=== PATIENT | male | born 2000 | race American Indian/Alaskan Native ===

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

== ENCOUNTER 2020-09-04 20:24 | Emergency (ER) | payer SELFPAY | END 2020-09-04 23:10 | disposition left against medical advice (07) | LOC: ED 20:24 | DX: R11.10 Vomiting, unspecified (principal); R50.9 Fever, unspecified; Z53.21 Procedure and treatment not carried out due to patient leaving prior to being seen by health care provider ==